=== PATIENT | female | born 1990 | race African-American/Black ===

== ENCOUNTER 2017-05-03 22:17 | Emergency (ER) | payer MEDICAID ==
[~2017-05-03] VITALS: Ht 177.8 cm; Wt 77.1 kg
[~2017-05-03 22:17] MED LIST: HYDR-1421; IBU800T; TRAM50TA2
[2017-05-04 01:03] VITALS: BP 109/73
[2017-05-04] MEDS ORDERED: KETOROLAC TROMETH 60MG/2ML VIAL IM ONE (02:00)
[2017-05-04] MEDS ORDERED: HYDROcodone-ACET 10/325MG TAB PO ONE (02:15)
== END 2017-05-04 02:14 | disposition home or self-care (01) ==
LOC: ER 22:19
DX: M25.551 Pain in right hip (principal); F17.210 Nicotine dependence, cigarettes, uncomplicated; F12.10 Cannabis abuse, uncomplicated
CPT/HCPCS: 72100; 73502; 96372; 99284; J1885

== ENCOUNTER 2017-08-08 08:42 | Emergency (ER) | payer MEDICAID ==
[~2017-08-08] VITALS: Ht 177.8 cm; Wt 84.4 kg
[2017-08-08 09:30] VITALS: BP 108/75
[2017-08-08 10:02] LABS: Basophils # (auto) 0.1 uL; CONDITION Y; DEFINITIVE SEE PRINTOUT; Eosinophils # (auto) 0.1 uL; Eosinophils % (auto) 0.9 % (0.0-7.0); Hematocrit 35.2 % (36.0-46.0); Hemoglobin 11.2 g/dL (12.2-16.2); Lymphocytes # (auto) 1.6 uL; Lymphocytes % (auto) 30.6 % (10.0-50.0); Mean Corpuscular Hemoglobin 25.5 pg (28.0-32.0); Mean Corpuscular Volume 79.8 fL (80.0-100.0); Mean Platelet Volume 8.9 fL (7.4-10.4); Monocytes # (auto) 0.5 uL; Monocytes % (auto) 9.1 % (0.0-12.0); Neutrophils # (auto) 3.1 uL; Neutrophils % (auto) 57.4 % (37.0-80.0); Platelet Count (auto) 285 10^3/uL (140-450); Red Cell Distribution Width 15.2 % (11.6-16.0); White Blood Cell 5.3 10^3/uL (4.4-10.8)
[2017-08-08 10:15] LABS: Urine Bilirubin Negative (Negative); Urine Blood 3+ /uL (Negative); Urine Color Yellow (Yellow); Urine Glucose Normal (Normal); Urine Ketone Negative (Negative); Urine Mucus FEW (None Seen); Urine Nitrite Negative (Negative); Urine RBC 2 /hpf (0 - 4); Urine Squamous Epithelial Cell MANY /hpf (<5); Urine Urobilinogen Normal (Negative)
== END 2017-08-08 11:43 | disposition home or self-care (01) ==
LOC: ER 08:42
DX: O20.0 Threatened abortion (principal); O23.41 Unspecified infection of urinary tract in pregnancy, first trimester; Z3A.01 Less than 8 weeks gestation of pregnancy
CPT/HCPCS: 36415; 76801; 76817; 81001; 84702; 85025

== ENCOUNTER 2017-08-11 13:56 | Emergency (ER) | payer MEDICAID ==
[~2017-08-11] VITALS: Ht 177.8 cm; Wt 83.2 kg
[2017-08-11 16:15] VITALS: BP 105/72
== END 2017-08-11 17:13 | disposition home or self-care (01) ==
LOC: ER 13:56
DX: O34.81 Maternal care for other abnormalities of pelvic organs, first trimester (principal); N83.209 Unspecified ovarian cyst, unspecified side; Z3A.01 Less than 8 weeks gestation of pregnancy; Z34.91 Encounter for supervision of normal pregnancy, unspecified, first trimester
CPT/HCPCS: 36415; 76801; 76817; 84702

== ENCOUNTER 2017-08-18 07:36 | Emergency (ER) | payer MEDICAID ==
[~2017-08-18] VITALS: Ht 177.8 cm; Wt 83.5 kg
[2017-08-18 08:26] VITALS: BP 116/87
[2017-08-18 08:57] LABS: Basophils # (auto) 0.1 uL; Basophils % (auto) 1.3 % (0.0-2.0); CONDITION Y; DEFINITIVE SEE PRINTOUT; Eosinophils # (auto) 0.1 uL; Eosinophils % (auto) 1.6 % (0.0-7.0); Hematocrit 36.7 % (36.0-46.0); Hemoglobin 11.8 g/dL (12.2-16.2); Lymphocytes % (auto) 29.5 % (10.0-50.0); Mean Corpuscular Hemoglobin 25.5 pg (28.0-32.0); Mean Corpuscular Hgb Conc. 32.3 g/dL (32.0-36.0); Mean Corpuscular Volume 78.9 fL (80.0-100.0); Mean Platelet Volume 9.2 fL (6.9-10.8); Monocytes # (auto) 0.6 uL; Monocytes % (auto) 8.8 % (0.0-12.0); Neutrophils # (auto) 3.9 uL; Neutrophils % (auto) 58.8 % (37.0-80.0); Platelet Count (auto) 347 10^3/uL (140-450); Red Cell Distribution Width 15.1 % (11.8-14.3); White Blood Cell 6.7 10^3/uL (4.4-10.8)
== END 2017-08-18 09:23 | disposition home or self-care (01) ==
LOC: ER 07:36
DX: O20.0 Threatened abortion (principal); O99.331 Smoking (tobacco) complicating pregnancy, first trimester; F17.210 Nicotine dependence, cigarettes, uncomplicated; F12.10 Cannabis abuse, uncomplicated; Z3A.00 Weeks of gestation of pregnancy not specified
CPT/HCPCS: 36415; 76801; 84702; 85025

== ENCOUNTER 2017-08-24 13:39 | Emergency (ER) | payer MEDICAID ==
[~2017-08-24] VITALS: Ht 175.3 cm; Wt 85.3 kg
[2017-08-24 14:04] VITALS: BP 124/81
== END 2017-08-24 16:19 | disposition home or self-care (01) ==
LOC: ER 13:46
DX: O9A.211 Injury, poisoning and certain other consequences of external causes complicating pregnancy, first trimester (principal); S50.812A Abrasion of left forearm, initial encounter; O99.331 Smoking (tobacco) complicating pregnancy, first trimester; Z3A.01 Less than 8 weeks gestation of pregnancy; V43.52XA Car driver injured in collision with other type car in traffic accident, initial encounter; Y93.89 Activity, other specified; Y92.89 Other specified places as the place of occurrence of the external cause; Y99.8 Other external cause status; Z79.899 Other long term (current) drug therapy
CPT/HCPCS: 76801

== ENCOUNTER 2017-10-14 13:31 | Emergency (ER) | payer MEDICAID ==
[~2017-10-14] VITALS: Ht 175.3 cm; Wt 81.2 kg
[2017-10-14 14:45] VITALS: BP 102/51
== END 2017-10-14 15:10 | disposition home or self-care (01) ==
LOC: ER 13:31
DX: J20.9 Acute bronchitis, unspecified (principal); J02.9 Acute pharyngitis, unspecified; F17.210 Nicotine dependence, cigarettes, uncomplicated

== ENCOUNTER 2019-09-06 16:17 | Observation (INO) | payer MEDICAID ==
[~2019-09-06] VITALS: Ht 30.5 cm; Wt 0.5 kg
[2019-09-06] MEDS ORDERED: LACTATED RINGER'S 1,000 ML IV ONE (17:00)
[2019-09-06 19:43] LABS: Urine Bacteria NONE SEEN /hpf (None Seen); Urine Blood Negative /uL (Negative); Urine Mucus FEW (None Seen); Urine Specific Gravity 1.026 (1.001-1.035); Urine WBC 1 /hpf (0 - 5)
[2019-09-06 20:25] LABS: Alcohol, Urine < 3.0 mg/dL (0-5); Amphetamine Screen, Urine NEGATIVE (NEGATIVE); Barbiturate Scree,Urine NEGATIVE (NEGATIVE); Benzodiazephine Screen, Urine NEGATIVE (NEGATIVE); Cannabinoid Screen, Urine POSITIVE (NEGATIVE); Cocaine Screen, Urine NEGATIVE (NEGATIVE); Opiate Scree,Urine NEGATIVE (NEGATIVE); Phencyclidine Screen, Urine NEGATIVE (NEGATIVE)
== END 2019-09-06 20:34 | disposition home or self-care (01) | DRG 566 ==
LOC: LDRP 16:17
PROVIDERS: ADMIT Obstetrics & Gynecology; ATTEND Obstetrics & Gynecology
DX: O26.892 Other specified pregnancy related conditions, second trimester (principal); F12.90 Cannabis use, unspecified, uncomplicated; R10.2 Pelvic and perineal pain; O21.2 Late vomiting of pregnancy; O99.312 Alcohol use complicating pregnancy, second trimester; O99.322 Drug use complicating pregnancy, second trimester; Z87.891 Personal history of nicotine dependence
CPT/HCPCS: 59025; 76815; 80307; 81001; 81002; G0378; 96361; 96366

== ENCOUNTER 2019-09-15 18:46 | Observation (INO) | payer MEDICAID ==
[~2019-09-15] VITALS: Ht 177.8 cm; Wt 88.5 kg
[2019-09-15] MEDS ORDERED: PREN-153 OR (19:10)
[2019-09-15] MEDS ORDERED: ACETAMINOPHEN 325 MG TAB PO ONE (19:30)
[2019-09-15 20:27] LABS: Basophils # (auto) 0 uL; Basophils % (auto) 0.2 % (0.0-2.0); Eosinophils # (auto) 0 uL; Eosinophils % (auto) 0.5 % (0.0-7.0); Hematocrit 32.8 % (36.0-46.0); Hemoglobin 10.6 g/dL (12.2-16.2); Lymphocytes % (auto) 22.9 % (10.0-50.0); Mean Corpuscular Hemoglobin 24.8 pg (28.0-32.0); Mean Corpuscular Hgb Conc. 32.2 g/dL (32.0-36.0); Mean Corpuscular Volume 77.2 fL (80.0-100.0); Monocytes # (auto) 0.5 uL; Monocytes % (auto) 5.5 % (0.0-12.0); Neutrophils # (auto) 6.3 uL; Neutrophils % (auto) 70.9 % (37.0-80.0); Platelet Count (auto) 289 10^3/uL (140-450); Red Blood Cells 4.25 10^6/uL (4.0-5.20); Red Cell Distribution Width 15.6 % (11.8-14.3); White Blood Cell 8.9 10^3/uL (4.4-10.8)
[2019-09-15 20:38] LABS: INR < 0.93 (0.9-1.15); Partial Thromboplastin Time 26.9 sec (23.64-32.05)
[2019-09-15 20:41] LABS: Albumin 2.9 g/dL (3.4-5.0); BUN/Creatinine Ratio 13.5; Calcium 9.1 mg/dL (8.5-10.1); Potassium 3.6 mmol/L (3.5-5.1); Uric Acid 2.5 mg/dL (2.6-6.0)
[2019-09-15 20:44] LABS: Bilirubin, Total 0.2 mg/dL (0.2-1.0); Total Protein 6.8 g/dL (6.4-8.2)
[2019-09-15 20:46] LABS: Urine Amorphous Crystal MOD /hpf (None Seen); Urine Bacteria FEW /hpf (None Seen); Urine Blood Negative /uL (Negative); Urine Mucus FEW (None Seen); Urine WBC 2 /hpf (0 - 5); Urine WBC Clumps PRESENT /hpf (None Seen)
== END 2019-09-15 20:55 | disposition home or self-care (01) | DRG 566 ==
LOC: LDRP 18:46
PROVIDERS: ADMIT Obstetrics & Gynecology; ATTEND Obstetrics & Gynecology
DX: O26.892 Other specified pregnancy related conditions, second trimester (principal); R51 Headache; Z3A.27 27 weeks gestation of pregnancy
CPT/HCPCS: 36415; 59025; 80053; 81001; 81002; 84550; 85025; 85610; 85730; G0378

== ENCOUNTER 2019-10-13 09:35 | Observation (INO) | payer MEDICAID ==
[~2019-10-13 09:35] MED LIST changes: -HYDR-1421; -IBU800T; +PREN-153 OR; -TRAM50TA2
== END 2019-10-13 10:40 | disposition home or self-care (01) | DRG 566 ==
LOC: LDRP 09:35
PROVIDERS: ADMIT Obstetrics & Gynecology; ATTEND Obstetrics & Gynecology
DX: O62.9 Abnormality of forces of labor, unspecified (principal); Z3A.31 31 weeks gestation of pregnancy
CPT/HCPCS: 59025; 81002; G0378

== ENCOUNTER 2019-10-20 13:35 | Observation (INO) | payer MEDICAID | END 2019-10-20 14:25 | disposition home or self-care (01) | DRG 566 | LOC: LDRP 13:35 | PROVIDERS: ADMIT Specialist; ATTEND Specialist | DX: O36.8130 Decreased fetal movements, third trimester, not applicable or unspecified (principal); Z3A.32 32 weeks gestation of pregnancy | CPT/HCPCS: 59025; 81002; G0378 ==

== ENCOUNTER 2019-10-21 14:00 | Observation (INO) | payer MEDICAID ==
[~2019-10-21] VITALS: Ht 177.8 cm; Wt 91.2 kg
[2019-10-21] MEDS ORDERED: BETAMETHASONE ACET (6MG/ML) 5ML VIAL IM ONE (14:30)
[2019-10-22] MEDS ORDERED: NIF10C GT (16:01)
== END 2019-10-21 15:40 | disposition home or self-care (01) | DRG 563 ==
LOC: LDRP 14:00
PROVIDERS: ADMIT Obstetrics & Gynecology; ATTEND Obstetrics & Gynecology
DX: O60.03 Preterm labor without delivery, third trimester (principal); Z3A.33 33 weeks gestation of pregnancy
CPT/HCPCS: 59025; 81002; 96372; G0378; J0702

== ENCOUNTER 2019-10-22 15:05 | Observation (INO) | payer MEDICAID ==
[~2019-10-22] VITALS: Ht 177.8 cm; Wt 91.2 kg
[2019-10-22] MEDS ORDERED: BETAMETHASONE ACET (6MG/ML) 5ML VIAL IM SCH (15:37)
[2019-10-22] MEDS ORDERED: BETAMETHASONE ACET (6MG/ML) 5ML VIAL IM ONE (16:00)
[2019-10-22] MEDS ORDERED: NIF10C GT (16:01)
== END 2019-10-22 16:25 | disposition home or self-care (01) | DRG 563 ==
LOC: LDRP 15:05
PROVIDERS: ADMIT Specialist; ATTEND Specialist
DX: O60.03 Preterm labor without delivery, third trimester (principal); Z3A.33 33 weeks gestation of pregnancy
CPT/HCPCS: 59025; 81002; 96372; G0378

== ENCOUNTER 2019-10-27 10:55 | Observation (INO) | payer MEDICAID ==
[~2019-10-27 10:55] MED LIST changes: +NIF10C GT
== END 2019-10-27 12:55 | disposition home or self-care (01) | DRG 861 ==
LOC: LDRP 10:55
PROVIDERS: ADMIT Obstetrics & Gynecology; ATTEND Obstetrics & Gynecology
DX: Z34.83 Encounter for supervision of other normal pregnancy, third trimester (principal); Z3A.33 33 weeks gestation of pregnancy
CPT/HCPCS: 59025; 76815; 81002; G0378

== ENCOUNTER 2019-11-04 12:00 | Observation (INO) | payer MEDICAID | END 2019-11-04 13:05 | disposition home or self-care (01) | DRG 563 | LOC: LDRP 12:00 | PROVIDERS: ADMIT Specialist; ATTEND Specialist | DX: O60.03 Preterm labor without delivery, third trimester (principal); Z3A.35 35 weeks gestation of pregnancy | CPT/HCPCS: 59025; 81002; G0378 ==

== ENCOUNTER 2019-11-12 14:20 | Observation (INO) | payer MEDICAID | END 2019-11-12 15:10 | disposition home or self-care (01) | DRG 566 | LOC: LDRP 14:20 | PROVIDERS: ADMIT Obstetrics & Gynecology; ATTEND Obstetrics & Gynecology | DX: O26.893 Other specified pregnancy related conditions, third trimester (principal); N89.8 Other specified noninflammatory disorders of vagina; Z3A.36 36 weeks gestation of pregnancy | CPT/HCPCS: 59025; 81002; G0378 ==

== ENCOUNTER 2019-11-17 13:40 | Observation (INO) | payer MEDICAID | END 2019-11-17 15:10 | disposition home or self-care (01) | DRG 566 | LOC: LDRP 13:40 | PROVIDERS: ADMIT Obstetrics & Gynecology; ATTEND Obstetrics & Gynecology | DX: O26.853 Spotting complicating pregnancy, third trimester (principal); O26.893 Other specified pregnancy related conditions, third trimester; R10.2 Pelvic and perineal pain; Z3A.36 36 weeks gestation of pregnancy | CPT/HCPCS: 59025; 81002; G0378 ==

== ENCOUNTER 2021-03-30 13:58 | Inpatient (IN) | payer MEDICAID ==
[~2021-03-30] VITALS: Ht 152.4 cm; Wt 107.5 kg
[~2021-03-30 13:58] MED LIST changes: -PREN-153 OR; +PREN1TAB71 OR
[2021-03-30] MEDS ORDERED: HYDROcodone-ACET 10/325MG TAB PO ONE (14:30)
[2021-03-30 14:55] LABS: Basophils # (auto) 0 10 ^3/uL (0-0.2); Basophils % (auto) 0.8 % (0.0-2.0); Eosinophils # (auto) 0.1 10 ^3/uL (0-0.8); Eosinophils % (auto) 1.2 % (0.0-7.0); Hematocrit 38.3 % (36.0-46.0); Hemoglobin 12.5 g/dL (12.2-16.2); Lymphocytes # (auto) 2.2 10 ^3/uL (0.4-5.4); Lymphocytes % (auto) 37.4 % (10.0-50.0); Mean Corpuscular Hemoglobin 31.8 pg (28.0-32.0); Mean Corpuscular Hgb Conc. 32.7 g/dL (32.0-36.0); Mean Corpuscular Volume 97.2 fL (80.0-100.0); Monocytes # (auto) 0.4 10 ^3/uL (0-1.3); Monocytes % (auto) 7.4 % (0.0-12.0); Neutrophils # (auto) 3.1 10 ^3/uL (1.6-8.6); Neutrophils % (auto) 53.2 % (37.0-80.0); Nucleated Red Blood Cells % 0.1 %; Platelet Count (auto) 360 10^3/uL (140-450); Red Blood Cells 3.94 10^6/uL (4.0-5.20); Red Cell Distribution Width 16.3 % (11.8-14.3); White Blood Cell 5.9 10^3/uL (4.4-10.8)
[2021-03-30 14:59] LABS: Urine Bacteria NONE SEEN /hpf (None Seen); Urine Blood Negative /uL (Negative); Urine Mucus FEW (None Seen); Urine Specific Gravity 1.013 (1.001-1.035); Urine WBC 3 /hpf (0 - 5)
[2021-03-30 15:10] LABS: Albumin 3.9 g/dL (3.4-5.0); Calcium 9.4 mg/dL (8.5-10.1); Potassium 3.7 mmol/L (3.5-5.1)
[2021-03-30 15:14] LABS: BUN/Creatinine Ratio 4.9; Bilirubin, Total 0.4 mg/dL (0.2-1.0); Total Protein 7.9 g/dL (6.4-8.2)
[2021-03-30] MEDS ORDERED: ONDANSETRON HCL 4 MG/2 ML VIAL IV ONE (16:45)
[2021-03-30] MEDS ORDERED: MORPHINE SULFATE 4 MG/ML SYR/VIAL IV ONE (16:45)
[2021-03-30] MEDS ORDERED: ONDANSETRON HCL 4 MG/2 ML VIAL IV PRN ×2 (20:00→21:15)
[2021-03-30] MEDS: SODIUM CHLORIDE 0.9% 1,000 ML IV SCH (20:00)
[2021-03-30] MEDS ORDERED: NITROGLYCERIN 0.4 MG SL TAB SL PRN (20:00)
[2021-03-30] MEDS ORDERED: SUCCINYLCHOLINE CHLORIDE 20 MG/ML 10ML VIAL IV ONE (20:22)
[2021-03-30] MEDS ORDERED: ROCURONIUM 10MG/ML 10ML VIAL IV ONE (20:22)
[2021-03-30] MEDS: MORPHINE SULF INJ 2 MG/ML SYRINGE 1ML IV PRN (20:33)
[2021-03-30] MEDS ORDERED: LIDOCAINE 1% HCL (LOCAL ANESTH.) INJ 20ML MDV ONE (20:42)
[2021-03-30 20:43] LABS: INR 1.03 (0.9-1.15)
[2021-03-30] MEDS ORDERED: BUPIVACAINE 0.25% INJ 50ML VIAL ONE (20:43)
[2021-03-30] MEDS ORDERED: BACITRACIN INJ 50000 UNIT VIAL ONE (20:43)
[2021-03-30] MEDS ORDERED: SODIUM CHLORIDE LOCK 10 ML ONE (21:05)
[2021-03-30] MEDS ORDERED: MEPERIDINE HCL (25 MG/ML) 1ML VIAL ONE ×2 (21:05→22:00)
[2021-03-30] MEDS ORDERED: GLYCOPYRROLATE 0.2 MG/ML 1ML VIAL ONE (21:05)
[2021-03-30] MEDS ORDERED: ONDANSETRON HCL 4 MG/2 ML VIAL ONE (21:05)
[2021-03-30] MEDS ORDERED: MIDAZOLAM HCL 1MG/1ML-2 ML VIAL ONE (21:05)
[2021-03-30] MEDS ORDERED: PROPOFOL 10 MG/ML 20 ML IV ONE (21:05)
[2021-03-30] MEDS ORDERED: NEOSTIGMINE 1 MG/ML INJ (10mg/10ML VIAL) ONE (21:05)
[2021-03-30] MEDS ORDERED: fentaNYL CITRATE 100 MCG/2 ML VL ONE (21:07)
[2021-03-30] MEDS ORDERED: MORPHINE SULF INJ 2 MG/ML SYRINGE 1ML IV PRN (21:15)
[2021-03-30] MEDS ORDERED: HYDROmorphone HCL 2 MG/ML VL IV PRN ×2 (21:15)
[2021-03-30] MEDS ORDERED: fentaNYL CITRATE 100 MCG/2 ML VL IV PRN (21:15)
[2021-03-30] MEDS ORDERED: fentaNYL CITRATE 5 ML ONE (21:37)
[2021-03-30] MEDS ORDERED: ceFAZolin 1GM/50ML 100 ML IV ONE (21:44)
[2021-03-30] MEDS ORDERED: LIDOCAINE W/ EPINEPHRINE 1% 20ML VIAL ONE (21:54)
[2021-03-30] MEDS ORDERED: ACETAMINOPHEN IV 100 ML IV ONE (22:49)
[2021-03-30] MEDS: ACETAMINOPHEN IV 1000 MG/100ML (10MG/ML) IV ONE ×2 (23:00→23:15)
[2021-03-30] MEDS ORDERED: METOCLOPRAMIDE HCL 5MG/ml INJ 2ml VIAL ONE (23:02)
[2021-03-30] MEDS ORDERED: METOCLOPRAMIDE HCL 5MG/ml INJ 2ml VIAL IV ONE (23:15)
[2021-03-30 23:50] VITALS: BP 127/77
[2021-03-31] MEDS: MORPHINE SULF INJ 2 MG/ML SYRINGE 1ML IV PRN ×6 (00:47→21:07)
[2021-03-31] MEDS ORDERED: TIZA4TAB9 PO (03:12)
[2021-03-31] MEDS ORDERED: PERCOT PO (03:12)
[2021-03-31] MEDS ORDERED: GABA-339 PO (03:12)
[2021-03-31 05:00] VITALS: BP 133/88
[2021-03-31] MEDS: SODIUM CHLORIDE 0.9% 1,000 ML IV SCH ×2 (06:37→15:37)
[2021-03-31] MEDS: HYDROcodone-ACET 5/325MG TAB PO PRN ×4 (06:38→19:56)
[2021-03-31 09:00] VITALS: BP 129/78
[2021-03-31] MEDS: PANTOPRAZOLE 40 MG/10 ML VIAL INJ IV SCH (11:20)
[2021-03-31] MEDS: DOCUSATE SOD 100 MG CAP PO SCH ×2 (11:21→21:07)
[2021-03-31 12:21] LABS: Basophils # (auto) 0 10 ^3/uL (0-0.2); Basophils % (auto) 0.2 % (0.0-2.0); Eosinophils # (auto) 0 10 ^3/uL (0-0.8); Hematocrit 35.9 % (36.0-46.0); Hemoglobin 11.6 g/dL (12.2-16.2); Lymphocytes # (auto) 0.7 10 ^3/uL (0.4-5.4); Lymphocytes % (auto) 5.7 % (10.0-50.0); Mean Corpuscular Hemoglobin 30.8 pg (28.0-32.0); Mean Corpuscular Hgb Conc. 32.3 g/dL (32.0-36.0); Mean Corpuscular Volume 95.4 fL (80.0-100.0); Monocytes # (auto) 0.3 10 ^3/uL (0-1.3); Monocytes % (auto) 2.4 % (0.0-12.0); Neutrophils # (auto) 10.7 10 ^3/uL (1.6-8.6); Neutrophils % (auto) 91.7 % (37.0-80.0); Nucleated Red Blood Cells % 0.1 %; Platelet Count (auto) 380 10^3/uL (140-450); Red Blood Cells 3.76 10^6/uL (4.0-5.20); Red Cell Distribution Width 16.5 % (11.8-14.3); White Blood Cell 11.6 10^3/uL (4.4-10.8)
[2021-03-31 12:36] LABS: BUN/Creatinine Ratio 3.8; Calcium 9.5 mg/dL (8.5-10.1); Magnesium 2.7 mg/dL (1.6-2.6); Potassium 3.8 mmol/L (3.5-5.1)
[2021-03-31 12:52] VITALS: BP 130/92
[2021-03-31 16:37] VITALS: BP 136/88
[2021-03-31] MEDS: IBUPROFEN 600 MG TAB PO PRN (21:29)
[2021-03-31 22:00] VITALS: BP 130/79
[2021-04-01] MEDS: MORPHINE SULF INJ 2 MG/ML SYRINGE 1ML IV PRN ×8 (01:46→21:59)
[2021-04-01] MEDS: SODIUM CHLORIDE 0.9% 1,000 ML IV SCH ×3 (01:50→20:37)
[2021-04-01] MEDS: HYDROcodone-ACET 5/325MG TAB PO PRN ×3 (03:27→20:36)
[2021-04-01 05:00] VITALS: BP 127/72
[2021-04-01] MEDS: IBUPROFEN 600 MG TAB PO PRN ×2 (05:16→16:33)
[2021-04-01 07:56] VITALS: BP 133/84
[2021-04-01] MEDS: DOCUSATE SOD 100 MG CAP PO SCH ×2 (10:44→21:58)
[2021-04-01] MEDS: PANTOPRAZOLE 40 MG/10 ML VIAL INJ IV SCH (10:44)
[2021-04-01 12:30] VITALS: BP 123/67
[2021-04-01 16:53] VITALS: BP 131/77
[2021-04-01 22:00] VITALS: BP 143/97
[2021-04-02] MEDS: IBUPROFEN 600 MG TAB PO PRN (00:59)
[2021-04-02] MEDS: MORPHINE SULF INJ 2 MG/ML SYRINGE 1ML IV PRN ×3 (02:55→09:13)
[2021-04-02] MEDS: HYDROcodone-ACET 5/325MG TAB PO PRN ×2 (04:16→08:59)
[2021-04-02 05:00] VITALS: BP 134/83
[2021-04-02 08:00] VITALS: BP 136/86
[2021-04-02 08:19] VITALS: BP 136/86
[2021-04-02] MEDS: DOCUSATE SOD 100 MG CAP PO SCH (08:59)
[2021-04-02] MEDS: PANTOPRAZOLE 40 MG/10 ML VIAL INJ IV SCH (08:59)
[2021-04-02] MEDS: SODIUM CHLORIDE 0.9% 1,000 ML IV SCH (08:59)
== END 2021-04-02 10:50 | disposition home or self-care (01) | DRG 227 ==
LOC: ER 13:58 → OVERFLOW 19:54 → CENTRAL 23:35
PROVIDERS: ADMIT Surgery; ATTEND Internal Medicine
PROC: 0WQF0ZZ Repair Abdominal Wall, Open Approach (ICD-10-PCS; principal; 2021-03-30 21:38)
DX: K43.6 Other and unspecified ventral hernia with obstruction, without gangrene (principal); E66.01 Morbid (severe) obesity due to excess calories; K42.0 Umbilical hernia with obstruction, without gangrene; F12.90 Cannabis use, unspecified, uncomplicated; F17.210 Nicotine dependence, cigarettes, uncomplicated; M19.90 Unspecified osteoarthritis, unspecified site; R53.81 Other malaise; Z20.822 Contact with and (suspected) exposure to COVID-19; Z68.41 Body mass index [BMI] 40.0-44.9, adult; Z80.0 Family history of malignant neoplasm of digestive organs; Z80.3 Family history of malignant neoplasm of breast; Z83.3 Family history of diabetes mellitus; Z91.040 Latex allergy status; Z72.89 Other problems related to lifestyle
CPT/HCPCS: 36415; 74176; 80048; 80053; 81001; 83690; 83735; 84702; 85025; 85610; 86850; 86900; 86901; 87426; 93005; 96374; 96375; 96376; C9113; G0378; J0131; J0330; J0690; J2001; J2250; J2405; J2704; J3490

== ENCOUNTER 2021-06-24 14:45 | Observation (INO) | payer MEDICAID ==
[~2021-06-24] VITALS: Ht 177.8 cm; Wt 93.7 kg
[~2021-06-24 14:45] MED LIST changes: +GABA-339 PO; -NIF10C GT; +PERCOT PO; -PREN1TAB71 OR; +TIZA4TAB9 PO
[2021-06-24 16:49] LABS: Basophils # (auto) 0.1 10 ^3/uL (0-0.2); Basophils % (auto) 1.9 % (0.0-2.0); Eosinophils # (auto) 0.1 10 ^3/uL (0-0.8); Eosinophils % (auto) 1.3 % (0.0-7.0); Hematocrit 32.5 % (36.0-46.0); Hemoglobin 10.5 g/dL (12.2-16.2); Lymphocytes # (auto) 2.3 10 ^3/uL (0.4-5.4); Lymphocytes % (auto) 36.9 % (10.0-50.0); Mean Corpuscular Hemoglobin 31.3 pg (28.0-32.0); Mean Corpuscular Hgb Conc. 32.3 g/dL (32.0-36.0); Monocytes # (auto) 0.4 10 ^3/uL (0-1.3); Monocytes % (auto) 6.1 % (0.0-12.0); Neutrophils # (auto) 3.4 10 ^3/uL (1.6-8.6); Neutrophils % (auto) 53.8 % (37.0-80.0); Nucleated Red Blood Cells % 0.4 %; Red Blood Cells 3.35 10^6/uL (4.0-5.20); Red Cell Distribution Width 23.1 % (11.8-14.3); White Blood Cell 6.3 10^3/uL (4.4-10.8)
[2021-06-24 17:12] LABS: Albumin 3.8 g/dL (3.4-5.0); BUN/Creatinine Ratio 8.8; Calcium 8.9 mg/dL (8.5-10.1)
[2021-06-24 17:14] LABS: Bilirubin, Total 0.7 mg/dL (0.2-1.0); Total Protein 7.3 g/dL (6.4-8.2)
[2021-06-24] MEDS ORDERED: cefTRIAXone 1GM/50ML D5W 50 ML IV ONE (19:45)
[2021-06-24] MEDS ORDERED: ONDANSETRON HCL 4 MG/2 ML VIAL IV ONE (19:45)
[2021-06-24] MEDS ORDERED: MORPHINE SULF INJ 2 MG/ML SYRINGE 1ML IV ONE (19:45)
[2021-06-24] MEDS ORDERED: MILK OF MAGNESIA 30ML SUSP PO ONE (20:30)
[2021-06-24 20:42] LABS: Amphetamine Screen, Urine NEGATIVE (NEGATIVE); Barbiturate Scree,Urine NEGATIVE (NEGATIVE); Benzodiazephine Screen, Urine NEGATIVE (NEGATIVE); Cannabinoid Screen, Urine POSITIVE (NEGATIVE); Cocaine Screen, Urine NEGATIVE (NEGATIVE); Opiate Scree,Urine NEGATIVE (NEGATIVE); Phencyclidine Screen, Urine NEGATIVE (NEGATIVE); Urine Bacteria NONE SEEN /hpf (None Seen); Urine Blood Negative /uL (Negative); Urine Hyaline Cast FEW /lpf (0 - 2); Urine Mucus FEW (None Seen); Urine Specific Gravity 1.025 (1.001-1.035); Urine WBC 1 /hpf (0 - 5)
[2021-06-24] MEDS ORDERED: ONDANSETRON HCL 4 MG/2 ML VIAL IV PRN (22:15)
[2021-06-24] MEDS: SODIUM CHLORIDE 0.9% 1,000 ML IV SCH (23:25)
[2021-06-25] MEDS: PIPERACILLIN-TAZOB 3.375GM 100 ML IV SCH ×3 (00:48→11:34)
[2021-06-25 02:00] VITALS: BP 115/80
[2021-06-25] MEDS: MORPHINE SULF INJ 2 MG/ML SYRINGE 1ML IV PRN ×3 (02:28→11:29)
[2021-06-25 05:00] VITALS: BP 127/74
[2021-06-25 06:44] VITALS: BP 115/80
[2021-06-25 07:53] LABS: Basophils # (auto) 0 10 ^3/uL (0-0.2); Basophils % (auto) 0.7 % (0.0-2.0); Eosinophils # (auto) 0.1 10 ^3/uL (0-0.8); Eosinophils % (auto) 1.6 % (0.0-7.0); Hematocrit 28.6 % (36.0-46.0); Hemoglobin 9.5 g/dL (12.2-16.2); Lymphocytes # (auto) 1.9 10 ^3/uL (0.4-5.4); Lymphocytes % (auto) 34.8 % (10.0-50.0); Mean Corpuscular Hemoglobin 32.3 pg (28.0-32.0); Mean Corpuscular Hgb Conc. 33.2 g/dL (32.0-36.0); Mean Corpuscular Volume 97.1 fL (80.0-100.0); Monocytes # (auto) 0.4 10 ^3/uL (0-1.3); Monocytes % (auto) 8.4 % (0.0-12.0); Neutrophils # (auto) 2.9 10 ^3/uL (1.6-8.6); Neutrophils % (auto) 54.5 % (37.0-80.0); Nucleated Red Blood Cells % 0.2 %; Red Blood Cells 2.95 10^6/uL (4.0-5.20); White Blood Cell 5.4 10^3/uL (4.4-10.8)
[2021-06-25 07:57] LABS: Red Cell Distribution Width 22.5 % (11.8-14.3)
[2021-06-25 08:06] LABS: Albumin 3.1 g/dL (3.4-5.0); Calcium 8.7 mg/dL (8.5-10.1); Potassium 3.6 mmol/L (3.5-5.1)
[2021-06-25 08:09] LABS: BUN/Creatinine Ratio 11.3; Bilirubin, Total 1.3 mg/dL (0.2-1.0); Total Protein 6.6 g/dL (6.4-8.2)
[2021-06-25] MEDS: SODIUM CHLORIDE 0.9% 1,000 ML IV SCH (08:15)
[2021-06-25 08:30] VITALS: BP 120/68
[2021-06-25] MEDS ORDERED: MAGNESIUM CITRATE SOLUTION 300 ML BTL PO ONE (09:00)
[2021-06-25] MEDS ORDERED: THIA100T5 PO (10:30)
[2021-06-25] MEDS ORDERED: FOLI1TAB6 PO (10:30)
[2021-06-25] MEDS ORDERED: SUCRALFATE 1 GM/10 ML ORAL SUSP PO SCH (11:30)
[2021-06-25] MEDS ORDERED: PANTOPRAZOLE 40 MG TAB PO ONE (11:30)
[2021-06-25] MEDS ORDERED: FOLIC ACID 1 MG, MULTIPLE VITAMIN 10 ML, MAGNESIUM SULF SDV 50% 8 MEQ, THIAMINE INJ 100... INJ SCH ×5 (12:00)
[2021-06-25 12:44] VITALS: BP 134/87
[2021-06-25 13:04] VITALS: BP 120/71
[2021-06-25] MEDS ORDERED: PANTOPRAZOLE 40 MG TAB PO SCH (22:00)
[2021-06-26] MEDS ORDERED: ENOXAPARIN SOD 40 MG/0.4 ML SYRINGE SC SCH (10:00)
[2021-06-26] MEDS ORDERED: PANTOPRAZOLE 40 MG TAB PO SCH (10:00)
[2021-06-26 17:36] LABS: Hepatitis A Ab IgM Negative; Hepatitis B Core IgM Negative; Hepatitis B Surface Antigen Negative (Negative); Hepatitis C Antibody Negative (Negative)
== END 2021-06-25 14:04 | disposition home or self-care (01) ==
LOC: ER 14:45 → INTOOBSV 21:12 → TELE 21:12 → TELE-CENTR 06-25 02:18
PROVIDERS: ADMIT Hospitalist; ATTEND Hospitalist
DX: R14.0 Abdominal distension (gaseous) (principal); Z20.822 Contact with and (suspected) exposure to COVID-19; R79.89 Other specified abnormal findings of blood chemistry; F17.210 Nicotine dependence, cigarettes, uncomplicated; F12.90 Cannabis use, unspecified, uncomplicated; K08.89 Other specified disorders of teeth and supporting structures; R07.89 Other chest pain; K43.9 Ventral hernia without obstruction or gangrene; Z85.038 Personal history of other malignant neoplasm of large intestine; Z79.899 Other long term (current) drug therapy
CPT/HCPCS: 36415; 71045; 73130; 74176; 76705; 80053; 80074; 80307; 81001; 82150; 83690; 83735; 84702; 85025; 87426; 96365; 96366; 96367; 96375; 96376; 99285; G0378; J0696; J2270; J2405; J2543; J3411; J3475

== ENCOUNTER 2021-10-17 08:19 | Emergency (ER) | payer MEDICAID ==
[~2021-10-17] VITALS: Ht 177.8 cm; Wt 88.9 kg
[~2021-10-17 08:19] MED LIST changes: +FOLI1TAB6 PO; +THIA100T5 PO
[2021-10-17 09:26] LABS: Basophils # (auto) 0.1 10 ^3/uL (0-0.2); Basophils % (auto) 1.6 % (0.0-2.0); Eosinophils # (auto) 0.1 10 ^3/uL (0-0.8); Hematocrit 25.2 % (36.0-46.0); Hemoglobin 8.4 g/dL (12.2-16.2); Lymphocytes # (auto) 2.5 10 ^3/uL (0.4-5.4); Lymphocytes % (auto) 31.2 % (10.0-50.0); Mean Corpuscular Hemoglobin 31.4 pg (28.0-32.0); Mean Corpuscular Hgb Conc. 33.4 g/dL (32.0-36.0); Mean Corpuscular Volume 94.1 fL (80.0-100.0); Monocytes # (auto) 0.8 10 ^3/uL (0-1.3); Monocytes % (auto) 9.5 % (0.0-12.0); Neutrophils # (auto) 4.5 10 ^3/uL (1.6-8.6); Neutrophils % (auto) 56.7 % (37.0-80.0); Nucleated Red Blood Cells % 0.8 %; Red Blood Cells 2.68 10^6/uL (4.0-5.20); Red Cell Distribution Width 22.3 % (11.8-14.3); White Blood Cell 7.9 10^3/uL (4.4-10.8)
[2021-10-17 11:06] LABS: Albumin 3.1 g/dL (3.4-5.0); Calcium 9.6 mg/dL (8.5-10.1)
[2021-10-17 11:10] LABS: BUN/Creatinine Ratio 4.3; Bilirubin, Total 1.4 mg/dL (0.2-1.0)
[2021-10-17 11:12] LABS: Potassium 2.9 mmol/L (3.5-5.1)
[2021-10-17] MEDS ORDERED: POTASSIUM EFFERVESENT TAB 25 MEQ PO ONE (11:15)
[2021-10-17] MEDS ORDERED: ONDANSETRON ODT 4 MG TAB PO ONE (11:15)
[2021-10-17] MEDS ORDERED: ACETAMINOPHEN/CODEINE#3 (300/30mg) TAB PO ONE (11:15)
[2021-10-17 12:47] LABS: BUN/Creatinine Ratio 7.5; Calcium 9.5 mg/dL (8.5-10.1); Potassium 3.8 mmol/L (3.5-5.1)
[2021-10-17 13:03] LABS: Amphetamine Screen, Urine NEGATIVE (NEGATIVE); Barbiturate Scree,Urine NEGATIVE (NEGATIVE); Benzodiazephine Screen, Urine NEGATIVE (NEGATIVE); Cannabinoid Screen, Urine POSITIVE (NEGATIVE); Cocaine Screen, Urine NEGATIVE (NEGATIVE); Phencyclidine Screen, Urine NEGATIVE (NEGATIVE)
[2021-10-17 13:11] LABS: Opiate Scree,Urine NEGATIVE (NEGATIVE)
[2021-10-17 14:17] VITALS: BP 115/75
== END 2021-10-17 14:18 | disposition home or self-care (01) ==
LOC: ER 08:19
DX: R10.84 Generalized abdominal pain (principal); E87.6 Hypokalemia; F10.10 Alcohol abuse, uncomplicated; D64.9 Anemia, unspecified; F12.10 Cannabis abuse, uncomplicated; R16.0 Hepatomegaly, not elsewhere classified; Z87.19 Personal history of other diseases of the digestive system; F17.210 Nicotine dependence, cigarettes, uncomplicated; Z79.899 Other long term (current) drug therapy; Z91.040 Latex allergy status; Z91.018 Allergy to other foods; Y90.5 Blood alcohol level of 100-119 mg/100 ml
CPT/HCPCS: 36415; 74176; 80048; 80053; 80307; 81025; 83880; 84702; 85025; 93970; 99284; Q0162